=== PATIENT | male | born 1960 | race Caucasian/White ===

== ENCOUNTER 2016-10-07 12:25 | Emergency (ER) | payer BC ==
[~2016-10-07] VITALS: Ht 185.4 cm; Wt 74.8 kg
[~2016-10-07 12:25] MED LIST: AMPH15CA7 PO; OXYC-128 PO; OXYC80TA40 PO
--- NOTE | 2016-10-07 12:47 | NUR ---
PT AMBULATORY TO ER BED 09. HERE FOR ANXIETY. RAN OUT OF [employer]. THINKS [employer] IS NOT WORKING. AWAITING MD KEENE.
--- NOTE | 2016-10-07 13:00 | NUR ---
SIDDHARTHA ORELLANA AT BEDSIDE FOR EVAL.
[2016-10-07] MEDS ORDERED: LORAZEPAM INJ 2 MG/ML VIAL ONE (13:03)
[2016-10-07] MEDS: LORAZEPAM INJ 2 MG/ML VIAL IM STA (13:10)
[2016-10-07] MEDS ORDERED: LORAZEPAM 1 MG TABLET ONE ×2 (13:36→13:38)
[2016-10-07] MEDS: LORAZEPAM 1 MG TABLET PO STA (13:45)
--- NOTE | 2016-10-07 14:30 | NUR ---
feels a lot better. Patient discharged to home in stable condition. Written and verbal after care instructions given. Patient verbalizes understanding of instruction.
[2016-10-07 14:32] VITALS: BP 121/66
== END 2016-10-07 14:34 | disposition home or self-care (01) ==
LOC: ER 12:27
DX: F41.9 Anxiety disorder, unspecified (principal); I48.91 Unspecified atrial fibrillation; I10 Essential (primary) hypertension
CPT/HCPCS: 93005; 96372; 99284; A4606; J2060; Z7610